=== PATIENT | male | born 1950 | race Caucasian/White ===

== ENCOUNTER → 2017-06-11 | Outpatient (CLI) | payer OTHER ==
--- NOTE | 2017-06-11 10:06 | PCVCIMAG ---
EXAM: BILATERAL CAROTID DUPLEX INDICATION: Carotid Occlusive Disease. Retinal artery occlusion. FINDINGS: Doppler Measurements (centimeters per second): RIGHT: Peak CCA-74, Peak ECA-54, Diastolic ICA-25, Peak ICA-74, ICA/CCA Ratio-1.0. LEFT: Peak CCA-98, Peak ECA-101, Diastolic ICA-32, Peak ICA-101, ICA/CCA Ratio-1.0. RIGHT CAROTID: The carotid bulb has minimal plaque. The proximal internal carotid artery shows no significant stenosis. The common carotid artery shows no significant stenosis. The external carotid artery shows no significant stenosis. LEFT CAROTID: The carotid bulb has moderate plaque. The proximal internal carotid artery shows <40% stenosis. The common carotid artery shows no significant stenosis. The external carotid artery shows no significant stenosis. Antegrade flow in both vertebral arteries. IMPRESSION: No significant stenosis of the right internal carotid artery with minimal plaque. <40% stenosis of the left internal carotid artery with moderate plaque. LOC:[place] [id number]
--- NOTE | 2017-06-11 11:17 | PCVCIMAG ---
APPROVED REPORT Study performed: 06/11/2017 09:09:14 EXAM: Comprehensive 2D, Doppler, and color-flow Echocardiogram Patient Location: Echo lab Status: routine BSA: 1.49 HR: 64 bpmBP: 130/93 mmHg Rhythm: NSR Other Information Study Quality: Fair Risk Factors: Cardiac Risk Factors: htn,smoking,fam hx Indications Hypertension/HDD Retinal artery occlusion, tobacco use, hypercholesteremia 2D Dimensions LVEF(%): 73.24 (>50%) IVSd: 8.90 (7-11mm)LVOT Diam: 20.37 (18-24mm) LVDd: 44.37 mm PWd: 6.22 (7-11mm) LVDs: 25.71 (25-40mm) Left Atrium: 14.77 (27-40mm) Aortic Root: 26.35 mm LV Single Plane 4CH: 68.74 % LV Single Plane 2CH: 53.29 %Roman's LVEF: 61.01 % Biplane EF: 61.7 % Volumes Left Atrial Volume (Systole) Single Plane 4CH: 21.24 mLSingle Plane 2CH: 17.41 mL Biplane LA Volume: 21.00 mLLA ESV Index: 14.00 mL/m2 Aortic Valve AoV Peak Aubrey.: 1.32 m/s AO Peak Gr.: 6.97 mmHgLVOT Max P.93 mmHg LVOT Max V: 0.86 m/s CANDIDA Vmax: 2.11 cm2 Mitral Valve E/A Ratio: 0.9 MV Decel. Time: 149.30 ms MV E Max Aubrey.: 0.74 m/s MV A Aubrey.: 0.80 m/s IVRT: 114.19 ms TDI E/Lateral E': 9.25E/Medial E': 10.57 Medial E' Aubrey.: 0.07 m/s Lateral E' Aubrey.: 0.08 m/s Pulmonary Valve PV Peak Aubrey.: 0.63 m/sPV Peak Gr.: 1.57 mmHg Pulmonary Vein P Vein S: 0.68 m/sP Vein A: 0.41 m/s P Vein D: 0.49 m/sP Vein A Dur.: 90.0 msec P Vein S/D Ratio: 1.39 Tricuspid Valve TR Peak Aubrey.: 2.66 m/s TR Peak Gr.: 28.22 mmHg TV Vmax: 0.61 m/sPA Pressure: 35.00 mmHg Left Ventricle The left ventricle is normal size. There is normal LV segmental wall motion. There is normal left ventricular wall thickness. Left ventricular systolic function is normal. The left ventricular ejection fraction is within the normal range. LVEF is 55-60%. Right Ventricle The right ventricle is normal size. The right ventricular systolic function is normal. Atria The left atrium size is normal. The right atrium size is normal. Aortic Valve Aortic valve is trileaflet. The Aortic valve is mildly sclerotic without stenosis or regurgitation. No aortic regurgitation is present. There is no aortic valvular stenosis. Mitral Valve The mitral valve is normal in structure. There is no mitral valve regurgitation noted. No evidence of mitral valve stenosis. Tricuspid Valve The tricuspid valve is normal in structure. Trace to mild tricuspid regurgitation with a PA pressure of 35mmHg.. Pulmonic Valve The pulmonary valve is normal in structure. There is no pulmonic valvular regurgitation. Great Vessels The aortic root is normal in size. Aortic arch is not well visualized but appears normal in size.Ascending aorta is not well visualized. IVC is normal in size and collapses with >50% inspiration Pericardium There is no pericardial effusion. There is no pleural effusion. <Conclusion> The left ventricle is normal size. Left ventricular systolic function is normal. The right ventricle is normal size. The left atrium size is normal. The Aortic valve is mildly sclerotic without stenosis or regurgitation. The mitral valve is normal in structure. Trace to mild tricuspid regurgitation with a PA pressure of 35mmHg..
== END | disposition home or self-care (01) ==
LOC: PCVCIMAG 08:32
PROVIDERS: ATTEND Nuclear Medicine Nuclear Cardiology
DX: I07.1 Rheumatic tricuspid insufficiency (principal); H34.9 Unspecified retinal vascular occlusion; I65.23 Occlusion and stenosis of bilateral carotid arteries; I63.9 Cerebral infarction, unspecified; I10 Essential (primary) hypertension; E78.5 Hyperlipidemia, unspecified; Z72.0 Tobacco use
CPT/HCPCS: 93306; 93880